=== PATIENT | male | born 1995 | race African-American/Black ===

== ENCOUNTER 2022-05-22 12:49 | Emergency (ER) | payer BC ==
[2022-05-22 13:05] VITALS: BMI 28.1
[2022-05-22] MEDS ORDERED: DIPHTH,PERTUSS(ACELL),TET 0.5 ML DISP.SYRIN IM ONE (13:15)
[2022-05-22 13:25] VITALS: BP 127/82; PULSE 70; RESP 18; TEMP 98.4
[2022-05-22] MEDS ORDERED: LIDOCAINE HCL 1%, 10 MG/ML (50 mL VIAL) INF ONE (15:14)
[2022-05-22] MEDS ORDERED: LIDOCAINE HCL 1%, 10 MG/ML (20ML VIAL) ONE (15:15)
== END 2022-05-22 16:30 | disposition home or self-care (01) ==
LOC: JER 12:49
PROC: 0HQ8XZZ Repair Buttock Skin, External Approach (ICD-10-PCS; principal; 2022-05-22)
PROC: 3E0234Z Introduction of Serum, Toxoid and Vaccine into Muscle, Percutaneous Approach (ICD-10-PCS; 2022-05-22)
DX: S00.03XA Contusion of scalp, initial encounter (principal); S31.821A Laceration without foreign body of left buttock, initial encounter; X99.9XXA Assault by unspecified sharp object, initial encounter
CPT/HCPCS: 70450-TC; 90715; 99284-25

== ENCOUNTER 2022-07-08 17:03 | Emergency (ER) | payer BC ==
[2022-07-08 17:13] VITALS: BP 121/74; PULSE 67; RESP 18; TEMP 98.1; BMI 26.9
== END 2022-07-08 18:48 | disposition home or self-care (01) ==
LOC: JERFT 17:03 → JER 17:03 → JERFT 18:48
DX: S31.811D Laceration without foreign body of right buttock, subsequent encounter (principal); S31.812D Laceration with foreign body of right buttock, subsequent encounter; X58.XXXD Exposure to other specified factors, subsequent encounter; Z48.02 Encounter for removal of sutures
CPT/HCPCS: 99281-25